=== PATIENT | male | born 1960 | race Caucasian/White ===

== ENCOUNTER 2016-12-13 17:02 | Emergency (ER) | payer MEDICAID | END 2016-12-13 19:50 | disposition left against medical advice (07) | LOC: ER 17:02 | DX: R07.2 Precordial pain (principal); J44.9 Chronic obstructive pulmonary disease, unspecified; I10 Essential (primary) hypertension; E78.00 Pure hypercholesterolemia, unspecified; F17.290 Nicotine dependence, other tobacco product, uncomplicated; Z98.61 Coronary angioplasty status; Z79.899 Other long term (current) drug therapy | CPT/HCPCS: 36415; 71010; 80053; 82550; 83735; 84484; 85025; 85610; 85730; 93005 ==